=== PATIENT | male | born 1940 | race Caucasian/White ===

== ENCOUNTER 2019-03-18 09:34 | Day surgery (SDC) | payer MEDICARE, OTHER ==
[~2019-03-18] VITALS: Ht 182.9 cm; Wt 97.7 kg
[2019-03-18 08:37] VITALS: BP 154/81
== END 2019-03-18 14:25 | disposition home or self-care (01) ==
LOC: OR 09:34
PROVIDERS: ATTEND Internal Medicine Cardiovascular Disease
DX: I35.0 Nonrheumatic aortic (valve) stenosis (principal); F15.90 Other stimulant use, unspecified, uncomplicated; Z79.82 Long term (current) use of aspirin; Z72.89 Other problems related to lifestyle
CPT/HCPCS: 36415; 80048; 85025; 93306; 93454; 99156; C1760; C1769; C1894; J2250; J3010; Q9967; J1644

== ENCOUNTER 2019-03-27 10:39 | Outpatient (CLI) | payer MEDICARE, OTHER ==
[~2019-03-27 10:39] MED LIST: ANTIBIOTIC PO; ASPI81TA45 PO; IRON PO; MULT-717 PO
[2019-03-27] MEDS ORDERED: OMNIPAQUE 350 MG/ML, 100ML BOTTLE ONE (12:43)
[2019-03-27] MEDS ORDERED: VISIPAQUE 320 MG/ML, 150ML BOTTLE ONE (13:48)
[2019-04-09] MEDS ORDERED: CLOP75TA PO (09:25)
[2019-04-09] MEDS ORDERED: ACET325T26 PO (09:25)
== END 2019-03-27 23:59 | disposition home or self-care (01) ==
LOC: RAD 10:39
PROVIDERS: ATTEND Internal Medicine Cardiovascular Disease
DX: I65.23 Occlusion and stenosis of bilateral carotid arteries (principal); M51.34 Other intervertebral disc degeneration, thoracic region; I70.0 Atherosclerosis of aorta; R91.8 Other nonspecific abnormal finding of lung field
CPT/HCPCS: 71275; 74174; 93880; 94060; 94726; 94729; Q9967

== ENCOUNTER 2019-06-04 09:11 | Day surgery (SDC) | payer MEDICARE, OTHER ==
[~2019-06-04] VITALS: Ht 182.9 cm; Wt 95.4 kg
[~2019-06-04 09:11] MED LIST changes: +ACET325T26 PO; +CLOP75TA PO
[2019-06-04 09:50] VITALS: BP 146/76
[2019-06-04] MEDS ORDERED: PLEASE ENTER HEIGHT AND WEIGHT MC SCH (10:00)
[2019-06-04] MEDS ORDERED: SODIUM CHLORIDE 0.9% 1,000 ML IV SCH (10:00)
[2019-06-04] MEDS ORDERED: PROPOFOL 10 MG/ML, 20ML ONE (15:58)
== END 2019-06-04 12:45 | disposition home or self-care (01) ==
LOC: CACL 09:11
PROVIDERS: ATTEND Internal Medicine Cardiovascular Disease
DX: I08.0 Rheumatic disorders of both mitral and aortic valves (principal); Z79.82 Long term (current) use of aspirin; Z79.02 Long term (current) use of antithrombotics/antiplatelets; Z79.899 Other long term (current) drug therapy; Z95.2 Presence of prosthetic heart valve; Z98.890 Other specified postprocedural states
CPT/HCPCS: 93312; 93321; 93325; J2704

== ENCOUNTER → 2020-03-25 | Outpatient (CLI) | payer MEDICARE, OTHER | END | disposition home or self-care (01) | LOC: CFH 09:53 | PROVIDERS: ATTEND Internal Medicine Cardiovascular Disease | DX: I08.8 Other rheumatic multiple valve diseases (principal); R06.02 Shortness of breath; I65.29 Occlusion and stenosis of unspecified carotid artery | CPT/HCPCS: 93306 ==